=== PATIENT | female | born 1995 | race African-American/Black ===

== ENCOUNTER 2017-11-07 13:14 | Emergency (ER) | payer OTHER ==
[~2017-11-07] VITALS: Ht 157.5 cm; Wt 44.5 kg
[~2017-11-07 13:14] MED LIST: CONEX TABLET1 EACH PO; SEPTRA DS TABLE1 TAB PO; TESSALON PERLE100 MG PO; URETRON DS1 TAB PO; ZYRTEC10 MG PO
== END 2017-11-07 14:31 | disposition home or self-care (01) ==
LOC: ER 13:14
DX: T78.1XXA Other adverse food reactions, not elsewhere classified, initial encounter (principal); R21 Rash and other nonspecific skin eruption

== ENCOUNTER 2018-02-22 16:12 | Outpatient (CLI) | payer OTHER | END 2018-02-22 16:23 | disposition home or self-care (01) | LOC: RAD 16:12 | DX: R59.0 Localized enlarged lymph nodes (principal) ==

== ENCOUNTER 2018-02-22 17:05 | Outpatient (CLI) | payer OTHER | END 2018-02-22 17:10 | disposition home or self-care (01) | LOC: LAB 17:05 | DX: D64.89 Other specified anemias (principal); R59.9 Enlarged lymph nodes, unspecified ==

== ENCOUNTER 2019-11-21 12:48 | Outpatient (CLI) | payer OTHER | END 2019-11-21 15:00 | disposition home or self-care (01) | LOC: LAB 12:48 | PROVIDERS: ATTEND General Practice | DX: Z00.8 Encounter for other general examination (principal); Z13.6 Encounter for screening for cardiovascular disorders ==

== ENCOUNTER 2022-08-12 01:11 | Emergency (ER) | payer OTHER ==
[~2022-08-12] VITALS: Ht 157.5 cm; Wt 47.6 kg
[~2022-08-12 01:11] MED LIST changes: -ONDANSETRON ODT4 MG PO; -PEPCID40 MG PO
[2022-08-12] MEDS ORDERED: ONDANSETRON ODT4 MG PO (04:45)
[2022-08-12] MEDS ORDERED: PEPCID40 MG PO (04:45)
== END 2022-08-12 04:49 ==
LOC: ER 01:11
DX: F10.129 Alcohol abuse with intoxication, unspecified (principal); S00.83XA Contusion of other part of head, initial encounter; Y08.89XA Assault by other specified means, initial encounter; Y93.89 Activity, other specified; Y92.480 Sidewalk as the place of occurrence of the external cause

== ENCOUNTER → 2022-08-12 | Emergency (ER) | payer OTHER ==
[~2022-08-12] MED LIST changes: +ONDANSETRON ODT4 MG PO; +PEPCID40 MG PO
== END | disposition home or self-care (01) ==
LOC: ER 17:19
DX: S00.93XA Contusion of unspecified part of head, initial encounter (principal); X83.8XXA Intentional self-harm by other specified means, initial encounter; Y93.89 Activity, other specified; Y92.018 Other place in single-family (private) house as the place of occurrence of the external cause; Y99.9 Unspecified external cause status; F10.929 Alcohol use, unspecified with intoxication, unspecified